=== PATIENT | female | born 1995 | race Caucasian/White ===

== ENCOUNTER → 2019-05-25 | Outpatient (REF) | payer OTHER, MEDICAID | LOC: M LAB REF 13:21 | PROVIDERS: ATTEND Advanced Practice Midwife | DX: Z34.81 Encounter for supervision of other normal pregnancy, first trimester (principal) ==

== ENCOUNTER → 2019-09-09 | Outpatient (CLI) | payer OTHER ==
--- NOTE | 2019-09-09 10:49 | REP ---
Clinical: Anatomical evaluation. Comparison: None . Findings: Examination demonstrates a single live intrauterine in cephalic presentation. motion is identified by technologist. Placenta is noted anterior and grade I without evidence for placenta previa or abruption. Amniotic fluid volume is normal. Cervix measures the 5.1 cm in length and appears closed. No evidence for nuchal cord. Gestational age by LMP 29 weeks 5 days with MARCIN 11/20/2019 . Gestational age by current measurements 29 weeks 6 days with MARCIN 11/19/2019 . FHR equals 144 beats per minute. Estimated weight 1457 grams ( 44th percentile). Amniotic fluid index: 11.0 cm (9.1 - 23.3) Umbilical cord SD ratio: 3.32 Anatomical assessment demonstrates normal structures including cranium, choroid plexus, cavum, cerebellum/posterior fossa, lungs, diaphragm, stomach, cord insertion/three-vessel cord, kidneys/bladder, spine, and extremities. Suboptimal evaluation of the facial features and heart/ventricular outflow tracts due to lie. However, no obvious abnormalities appreciated. Impression: 1. Single live intrauterine in cephalic presentation demonstrating appropriate interval growth. 2. Although no gross abnormalities are identified, limited evaluation of the facial features and heart/ventricular outflow tracts noted. Electronically Signed by Bob Delacruz MD 09/09/2019 10:40 A
== END ==
LOC: M RAD 09:28
PROVIDERS: ATTEND Obstetrics & Gynecology
DX: Z34.80 Encounter for supervision of other normal pregnancy, unspecified trimester (principal); Z3A.29 29 weeks gestation of pregnancy

== ENCOUNTER → 2019-10-20 | Outpatient (CLI) | payer OTHER | LOC: M PLALAB 11:30 | PROVIDERS: ATTEND Advanced Practice Midwife | DX: Z34.83 Encounter for supervision of other normal pregnancy, third trimester (principal) ==

== ENCOUNTER 2019-10-25 13:20 | Outpatient (CLI) | payer OTHER ==
[~2019-10-25] VITALS: Ht 160 cm; Wt 109.1 kg
[2019-10-25] MEDS ORDERED: LR 1,000 ML IV ONE (13:45)
[2019-10-25 13:47] VITALS: BP 133/85
[2019-10-25] MEDS ORDERED: PRENTAB9 PO (14:07)
[2019-10-25] MEDS: ONDANSETRON 4MG/2ML VIAL (J2405) IV SCH ×2 (14:33→18:13)
[2019-10-25] MEDS ORDERED: LR 1,000 ML IV SCH (14:45)
[2019-10-25 15:16] VITALS: BP 138/84
[2019-10-25 15:17] LABS: INFLUENZA A AMPLIFICATION NEGATIVE (NEGATIVE); INFLUENZA B AMPLIFICATION NEGATIVE (NEGATIVE)
[2019-10-25 16:44] VITALS: BP 125/72
--- NOTE | 2019-10-25 17:55 | IPNPDOC ---
Text Note Date of Service The patient was seen on 10/25/19. NOTE Subjective: Patient is a 24-year-old at 36.2 wk gestation by LMP and consistent with first trimester ultrasound. MARCIN 11/20/2019. Care was established in first trimester. Prepregnancy weight was 200# and last weight was 240#. has been complicated by history of gestational hypertension. She is presents to labor and delivery c/o nausea and vomiting that started at 0300 this morning. She reports she is unable to keep any fluid down. Patient denies fevers. She reports positive movement, denies leakage of fluid, vaginal bleeding or regular uterine contractions. Objective: Alert and oriented x3. No apparent distress. Regular rate and cardiac rhythm. No difficulty breathing or retractions. Abdomen soft, gravid. No emesis since arrival. heart rate 140 with moderate variability, accelerations present, decelerations absent. Occasional mild contractions. Flu swab collected negative. Tolerated PO intake after medication. -Medical History: Gestational hypertension (previous ) -Surgical History: Knee surgery -Family History: Diabetes, HTN, thyroid dysfunction -Social History: Denies alcohol abuse, nicotine or drug use -Medications: vitamin 1 tab PO daily Assessment: SIUP @ 36.2wk gestation, category 1 tracing; nausea and vomiting in without fever, flu negative Plan: -1000ml LR IV fluid bolus followed by LR at 125ml/hr. -4mg IV zofran on arrival and 4mg IV zofran prior to discharge. -Oral fluids and crackers tolerated. -Continuous heart rate monitoring. -Discharge home with labor precautions. -Patient to call with leakage of fluid, vaginal bleeding, contractions increasing in frequency and intensity, decreased movement or abdominal trauma. -Encouraged adequate PO fluid intake. -Keep next appointment on Friday. VS,Fishbone, I+O VS, Fishbone, I+O Vital Signs Date Time Temp Pulse Resp B/P (MAP) Pulse Ox O2 Delivery O2 Flow Rate FiO2 10/25/19 13:47 99.5 130 18 133/85 (101) ZACKERY NULL CNM Oct 25, 2019 17:55
== END 2019-10-25 18:30 | disposition home or self-care (01) ==
LOC: M LDO 13:20
PROVIDERS: ATTEND Advanced Practice Midwife
DX: O21.8 Other vomiting complicating pregnancy (principal); Z3A.36 36 weeks gestation of pregnancy
CPT/HCPCS: 59025; 87631; 96361; 96374; J2405

== ENCOUNTER 2019-11-09 23:52 | Inpatient (IN) | payer OTHER, MEDICAID ==
[~2019-11-09] VITALS: Ht 160 cm; Wt 111.8 kg
[~2019-11-09 23:52] MED LIST: PRENTAB9 PO
[2019-11-10] VITALS (8 sets, daily range): BP systolic 121–145; BP diastolic 58–82
[2019-11-10] MEDS ORDERED: LACTATED RINGER'S 1000 ML IV STA (01:14)
[2019-11-10] MEDS ORDERED: LR 1,000 ML IV SCH (01:14)
[2019-11-10] MEDS ORDERED: OXYTOCIN DRIP 30 UNITS in IV 1 EA IV SCH ×2 (01:30→05:29)
[2019-11-10 02:14] LABS: HEMATOCRIT 34.5 % (36.0-47.0); MEAN CORPUSCULAR HEMOGLOBIN 26.6 pg (27.0-33.0); MEAN CORPUSCULAR HGB CONC 31.9 g/dl (32.0-36.5); MEAN CORPUSCULAR VOLUME 83.3 fl (80.0-96.0); PLATELET COUNT, AUTOMATED 224 10^3/uL (150-450); RED BLOOD COUNT 4.14 10^6/uL (4.00-5.40); WHITE BLOOD COUNT 9.7 10^3/uL (4.0-10.0)
[2019-11-10] MEDS ORDERED: ACETAMINOPHEN TAB 650MG DOSE (2X325MG) PO PRN (05:30)
[2019-11-10] MEDS ORDERED: DIBUCAINE 1% OINTMENT 30GM TOP PRN (05:30)
[2019-11-10] MEDS ORDERED: RHOGAM 300 MCG (1500 IU) INJ (J2790) IM SCH (05:30)
[2019-11-10] MEDS ORDERED: ONDANSETRON 4MG/2ML VIAL (J2405) IV PRN (05:30)
[2019-11-10] MEDS ORDERED: ACETAMINOPHEN 500 MG TAB PO PRN (05:30)
[2019-11-10] MEDS ORDERED: MEASLES,MUMPS,RUBELLA VACCINE INJ (MMR-II) (90707) SC SCH (05:30)
[2019-11-10] MEDS ORDERED: PROMETHAZINE 25 MG TAB PO PRN (05:30)
[2019-11-10] MEDS ORDERED: IBUPROFEN 600 MG TAB PO PRN (05:30)
[2019-11-10] MEDS ORDERED: DOCUSATE SODIUM 100 MG CAP PO PRN (05:30)
[2019-11-10] MEDS ORDERED: IBUPROFEN 800 MG TAB PO PRN (05:30)
[2019-11-10] MEDS: PRENATAL VITAMINS CHEWABLE TABLET PO SCH (07:38)
[2019-11-11 06:00] VITALS: BP 125/76
[2019-11-11] MEDS: PRENATAL VITAMINS CHEWABLE TABLET PO SCH (09:00)
== END 2019-11-11 11:00 | disposition home or self-care (01) | DRG 560 ==
LOC: M LDO 23:52 → M LDI 11-10 01:26 → M OBS 11-10 15:04
PROVIDERS: ADMIT Obstetrics & Gynecology; ATTEND Obstetrics & Gynecology
PROC: 10E0XZZ Delivery of Products of Conception, External Approach (ICD-10-PCS; principal; 2019-11-10)
PROC: 0HQ9XZZ Repair Perineum Skin, External Approach (ICD-10-PCS; 2019-11-10)
DX: O42.02 Full-term premature rupture of membranes, onset of labor within 24 hours of rupture (principal); O69.81X0 Labor and delivery complicated by cord around neck, without compression, not applicable or unspecified; Z3A.38 38 weeks gestation of pregnancy; O70.0 First degree perineal laceration during delivery; Z37.0 Single live birth

== ENCOUNTER → 2020-11-30 | Outpatient (CLI) | payer OTHER ==
--- NOTE | 2020-12-01 09:03 | REP ---
INDICATION: ANATOMY COMPARISON: None. TECHNIQUE: Transabdominal obstetrical ultrasound with color Doppler evaluation. FINDINGS: Examination demonstrates a single live intrauterine in breech presentation. motion is identified by technologist. Placenta is noted posterior and grade 0 without evidence for placenta previa or abruption. Amniotic fluid volume is normal. Cervix measures 3.1 cm in length and appears closed. Gestational age by LMP 18 weeks 1 day with MARCIN 05/02/2021. Gestational age by current measurements 18 weeks 0 days with MARCIN 05/03/2021. FHR equals 163 beats per minute. BPD: 4.0 cm at 18 weeks 1 day HC: 14.8 cm at 18 weeks 0 days AC: 12.1 cm at 17 weeks 5 days FL: 2.6 cm at 17 weeks 6 days HL: 2.6 cm at 18 weeks 2 days HC/AC: 1.23 Estimated weight 212 grams (28thpercentile). Anatomical assessment demonstrates normal structures including cranium, choroid plexus, cavum, cerebellum/posterior fossa, facial features, cardiac ventricular outflow tracts, lungs, diaphragm, stomach, cord insertion/three-vessel cord, kidneys/bladder, spine, and extremities. IMPRESSION: Single live intrauterine in breech presentation demonstrating appropriate estimated weight. Echogenic focus within the cardiac left ventricle likely represents prominent chordae tendineae. Remainder of the anatomical assessment is complete and normal. <Electronically signed by Bob Delacruz > 12/01/20 0900
== END ==
LOC: M WHC 14:33
PROVIDERS: ATTEND Obstetrics & Gynecology
DX: O10.912 Unspecified pre-existing hypertension complicating pregnancy, second trimester (principal); Z3A.18 18 weeks gestation of pregnancy

== ENCOUNTER → 2020-12-29 | Outpatient (REF) | payer OTHER ==
[2020-12-29 15:28] LABS: HEMATOCRIT 37.7 % (36.0-47.0); HEMOGLOBIN 12.4 g/dl (12.0-15.5); MEAN CORPUSCULAR HEMOGLOBIN 29.7 pg (27.0-33.0); MEAN CORPUSCULAR HGB CONC 32.9 g/dl (32.0-36.5); MEAN CORPUSCULAR VOLUME 90.4 fl (80.0-96.0); PLATELET COUNT, AUTOMATED 214 10^3/uL (150-450); RED BLOOD COUNT 4.17 10^6/uL (4.00-5.40); WHITE BLOOD COUNT 8.9 10^3/uL (4.0-10.0)
[2020-12-29 15:42] LABS: CREATININE,RANDOM URINE 37.4 MG/DL; TOTAL PROTEIN,RANDOM URINE 9.8 MG/DL (0.0-12.0)
[2020-12-29 15:43] LABS: ALT/SGPT 8 U/L (12-78); BILIRUBIN,TOTAL 0.2 MG/DL (0.2-1.0); GLOMERULAR FILTRATION RATE > 60.0 (>60); LDH LACTATE DEHYDROGENASE 151 U/L (84-246); URIC ACID 3.6 MG/DL (2.6-6.0)
== END ==
LOC: M PLALAB 12:14
PROVIDERS: ATTEND Advanced Practice Midwife
DX: O10.919 Unspecified pre-existing hypertension complicating pregnancy, unspecified trimester (principal); Z3A.22 22 weeks gestation of pregnancy

== ENCOUNTER → 2021-01-26 | Outpatient (CLI) | payer OTHER ==
--- NOTE | 2021-01-28 08:10 | REP ---
INDICATION: GROWTH/HYPERTENSION COMPARISON: 11/30/2020 TECHNIQUE: Transabdominal obstetrical ultrasound with color Doppler evaluation. FINDINGS: Examination demonstrates a single live intrauterine in breech presentation. motion is identified by technologist. Placenta is noted posterior and grade 1 without evidence for placenta previa or abruption. Amniotic fluid volume is normal. Cervix measures 3.0 cm in length and appears closed.. Gestational age by LMP 26 weeks 2 days with MARCIN 05/02/2021. Gestational age by current measurements 26 weeks 4 days with MARCIN 04/30/2021. FHR equals 149 beats per minute. BPD: 6.6 cm at 26 weeks 4 days HC: 24.3 cm at 26 weeks 2 days AC: 21.7 cm at 26 weeks 1 day FL: 4.8 cm at 26 weeks 1 day HL: 4.7 cm at 27 weeks 4 days HC/AC: 1.12 Estimated weight 902 grams (34thpercentile). Limited anatomical assessment is grossly unremarkable. Previously identified echogenic focus within the left cardiac ventricle is not visualized on current exam. IMPRESSION: Single live intrauterine in breech presentation demonstrating appropriate estimated weight and growth. <Electronically signed by Bob Delacruz > 01/28/21 0832
== END ==
LOC: M WHC 11:04
PROVIDERS: ATTEND Advanced Practice Midwife
DX: O10.919 Unspecified pre-existing hypertension complicating pregnancy, unspecified trimester (principal); Z3A.26 26 weeks gestation of pregnancy

== ENCOUNTER → 2021-01-26 | Outpatient (REF) | payer OTHER ==
[2021-01-26 15:48] LABS: HEMATOCRIT 39.6 % (36.0-47.0); HEMOGLOBIN 12.3 g/dl (12.0-15.5); MEAN CORPUSCULAR HEMOGLOBIN 28.2 pg (27.0-33.0); MEAN CORPUSCULAR HGB CONC 31.1 g/dl (32.0-36.5); MEAN CORPUSCULAR VOLUME 90.8 fl (80.0-96.0); PLATELET COUNT, AUTOMATED 190 10^3/uL (150-450); RED BLOOD COUNT 4.36 10^6/uL (4.00-5.40); WHITE BLOOD COUNT 10.1 10^3/uL (4.0-10.0)
== END ==
LOC: M PLALAB 12:18
PROVIDERS: ATTEND Advanced Practice Midwife
DX: Z34.92 Encounter for supervision of normal pregnancy, unspecified, second trimester (principal); Z3A.22 22 weeks gestation of pregnancy

== ENCOUNTER → 2021-02-23 | Outpatient (CLI) | payer OTHER | LOC: M WHC 12:15 | PROVIDERS: ATTEND Obstetrics & Gynecology | DX: O10.919 Unspecified pre-existing hypertension complicating pregnancy, unspecified trimester (principal) ==

== ENCOUNTER → 2021-03-12 | Outpatient (CLI) | payer OTHER ==
--- NOTE | 2021-03-12 14:10 | REP ---
INDICATION: GROWTH/HYPERTENSION COMPARISON: 01/26/2021 TECHNIQUE: Transabdominal obstetrical ultrasound with color Doppler evaluation. FINDINGS: Examination demonstrates a single live intrauterine in cephalic presentation. motion is identified by technologist. Placenta is noted posterior and grade 2 without evidence for placenta previa or abruption. Amniotic fluid volume is normal. Cervix appears closed. Selected gestational age: 32 weeks 5 days with MARCIN 05/02/2021. Gestational age by current measurements 32 weeks 5 days with MARCIN 05/02/2021. FHR equals 146 beats per minute. Estimated weight 1936 grams (27thpercentile). INGA: 17.3 cm (8.4-24.4) Umbilical artery SD ratio: 2.56 (1.80-3.80) IMPRESSION: Single live advanced gestation in cephalic presentation. Estimated weight and amniotic fluid volume are normal. <Electronically signed by Bob Delacruz > 03/12/21 [id number]
== END ==
LOC: M WHC 13:08
PROVIDERS: ATTEND Obstetrics & Gynecology
DX: O10.919 Unspecified pre-existing hypertension complicating pregnancy, unspecified trimester (principal)

== ENCOUNTER → 2021-03-30 | Outpatient (REF) | payer OTHER | LOC: M SFHCWAGY 13:10 | PROVIDERS: ATTEND Advanced Practice Midwife | DX: O10.013 Pre-existing essential hypertension complicating pregnancy, third trimester (principal) ==

== ENCOUNTER → 2021-04-09 | Outpatient (CLI) | payer OTHER ==
--- NOTE | 2021-04-09 14:34 | REP ---
INDICATION: CHRONIC HYPERTENSION,GROWTH. COMPARISON: None. TECHNIQUE: Transabdominal scanning FINDINGS: Multiple ultrasonographic images of the gravid uterus show a single living intrauterine gestation in the cephalic presentation. The placenta is posterior and not low lying. Doppler interrogation of the heart shows a heart rate of 130 beats per minute. The subjective amniotic fluid volume is within normal limits. The calculated amniotic fluid index is 14.7 within expected range 7.6 to 24.5. Secondary to the low position of the head an accurate cervical length measurement could not be obtained. BPD: 8.9 cm 36 weeks 0 days HC: 32.0 cm 36 weeks 1 day AC: 32.3 cm 36 weeks 1 day FL: 7.2 cm 36 weeks 5 days The estimated weight is 2004 g which is at the 43rd percentile for a 36 week 5 day gestational age. IMPRESSION: Single living intrauterine gestation as described above with an estimated gestational age of 36 weeks 2 days via composite criteria and an estimated date of delivery of 05/05/2021 by today's exam. <Electronically signed by Amrit Willett > 04/09/21 [id number]
== END ==
LOC: M WHC 12:31
PROVIDERS: ATTEND Obstetrics & Gynecology
DX: O10.919 Unspecified pre-existing hypertension complicating pregnancy, unspecified trimester (principal)

== ENCOUNTER 2021-04-20 17:37 | Inpatient (IN) | payer OTHER ==
[~2021-04-20] VITALS: Ht 162.6 cm; Wt 121.7 kg
[2021-04-20] VITALS (10 sets, daily range): BP systolic 119–180; BP diastolic 62–91
[2021-04-20] MEDS ORDERED: LACTATED RINGER'S 1000 ML IV STA (18:04)
[2021-04-20] MEDS ORDERED: OXYTOCIN DRIP 30 UNITS in IV 1 EA IV PRN (18:05)
[2021-04-20] MEDS ORDERED: LIDOCAINE 1% MDV 20ML VIAL INFIL PRN (18:05)
[2021-04-20] MEDS ORDERED: METHYLERGONOVINE MALEATE 0.2 MG/ML VIAL (J2210) IM PRN (18:05)
[2021-04-20] MEDS ORDERED: ASPI81CH33 PO (18:07)
[2021-04-20] MEDS ORDERED: LABE100T5 PO (18:07)
[2021-04-20] MEDS ORDERED: HOME MED LIST COMPLETE! XX SCH (18:10)
[2021-04-20 18:52] LABS: HEMATOCRIT 36.2 % (36.0-47.0); HEMOGLOBIN 11.6 g/dl (12.0-15.5); MEAN CORPUSCULAR HEMOGLOBIN 27.6 pg (27.0-33.0); MEAN CORPUSCULAR VOLUME 86.2 fl (80.0-96.0); PLATELET COUNT, AUTOMATED 196 10^3/uL (150-450); WHITE BLOOD COUNT 8.8 10^3/uL (4.0-10.0)
--- NOTE | 2021-04-20 18:57 | HPEPDOC ---
Obstetrical History & Physical General Date of Admission Apr 20, 2021 at 17:37 History of Present Illness Chief Complaint: Induction of labor (chronic hyperension) Age: 25 : 3 Term: 2 Pre-term: 0 Abortions: 0 Livin Care Care: Good Care Dating Final EDC by: 1st trimester (US) EGA at Admission: 38 (+2) Antepartum Course Pre- weight (lbs.): 242 Admission Weight (lbs.): 266 Past Medical History Past Obstetrical History #1: Past Obstetrical History: Primgravida (2017) Type of Delivery: Spontaneous Vaginal Del. Sex of Infant: Male (7#14) Complications: Yes (GHTN) Past Obstetrical History #2: Past Obstetrical History: Multigravida (2019) Type of Delivery: Spontaneous Vaginal Del. Sex of : Female (7#2) Complications: Yes (CHTN) [employer] History: No pertinent history Past Medical History Medical History obesity hypertension Surgical History: Other (knee) Family History Significant Family History: Diabetes, Hypertension, Other (thyroid dysfunction) Social History Marital Status: Single Psychosocial History: No pertinent psych hx * Smoker: non-smoker Alcohol: Denies Drugs: denies Allergies Coded Allergies: No Known Allergies (Unverified , 10/25/19) Medications Scheduled Aspirin (Aspirin) 81 Mg Tab.chew, MG PO DAILY for pain Labetalol HCl (Labetalol HCl) 100 Mg Tablet, 100 MG PO BID No.137/Iron/Folic Acd ( Vitamin Tablet) 1 Each Tablet, 1 TAB PO DAILY Physical Examination Physical Examination GENERAL: Alert and oriented times three. BREAST: . ABDOMEN: Gravid and non-tender to touch. FETUS: Is vertex (VTX) by sterile vaginal examination (SVE), fetus is vertex (VTX) by Zia. EFW 7.5-8# HEART RATE: Regular rate and rhythm. LUNGS: Clear to auscultation (CTA). EXTREMITIES: No edema. No clonus. Deep tendon reflexes (DTRs) + 2. Laboratory Data [facility] Laboratory Tests 2 04/20/21 18:10: Serology Scanned Report Hepatitis B Testing Pertinent Laboratoy Data Blood Type: A+ RBC Antibody Screen: Negative HIV: Negative Hepatitis B: Negative Hepatitis C: Negative Rapid Plasma Reagin: Nonreactive Rubella: Immune Chlamydia/Gonorrhea: Negative Group B Streptococcus: Positive Glucose Tolerance Test: 100 (early 1hr 91) Anatomy Ultrasound Ultrasound Date: Nov 30, 2020 Placenta Location: Posterior Normal Anatomy: Yes Placenta Previa: No Estimated Weight (grams): 212 (28%) Other Ultrasounds 09/28/2020 dating 9w1d 01/26/2021 Breech, EGA 26w4, EFW 902gm 34% 03/12/2021 cephalic, EGA 32w5d EFW 1936gm 27% INGA 17.3, S/D 2.56 04/09/2021 Cephalic, EGA 36w5d, EFW 2004gm 43%, INGA 14.7 Steroid Therapy Steroid Therapy: No Vaginal Examination Dilation: 1cm Effacement: 50% Station: -2 Cervical Consistency: Medium Cervical Position: Posterior Presentation: Cephalic presentation Assessment Heart Rate (FHR): 135 Variability: Moderate Accelerations: Positive Decelerations: None Tocometer Contractions: Yes Frequency: irregular Duration: less than 60 seconds Strength: palpated as mild Assessment/Plan Assessment Deanna is a 25-year-old (G)3 para (P)2-0-0-2 at 38+2 weeks by 9-week ultrasound. Presents to Labor and Delivery (L&D) induction of labor due to ch ronic hypertension. Currently taking labetalol 100mg BID and ASA 81mg daily. Reports good movement. Denies LOF, bleeding or regular UC. . Plan Admit and orient. 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 Group B Streptococcus (GBS) positive. Labs and intravenous (IV) per unit protocol. Counseled on misoprostol, Pitocin and induction of labor (IOL). Lactated Ringers (LR): Bolus 500 mL, then saline lock. Plans to labor ad albert Anticipate normal spontaneous delivery () C-S as appropriate. Odalis Galaviz CNM Apr 20, 2021 18:31
[2021-04-20] MEDS ORDERED: miSOPROStol 50MCG 1/2 TABLET PO SCH (19:00)
[2021-04-20 19:21] LABS: ALT/SGPT 10 U/L (12-78); BILIRUBIN,TOTAL 0.2 MG/DL (0.2-1.0); CREATININE FOR GFR 0.54 MG/DL (0.55-1.30); GLOMERULAR FILTRATION RATE > 60.0 (>60); LDH LACTATE DEHYDROGENASE 181 U/L (84-246); URIC ACID 4.3 MG/DL (2.6-6.0)
[2021-04-20 19:32] LABS: TOTAL PROTEIN,RANDOM URINE 7.4 MG/DL (0.0-12.0)
[2021-04-20] MEDS: LABETALOL 100MG TAB PO SCH (21:12)
[2021-04-21] VITALS (24 sets, daily range): BP systolic 116–157; BP diastolic 60–83
[2021-04-21] MEDS ORDERED: BUTORPHANOL 2 MG/ML INJ (J0595) IV ONE ×2 (00:15→12:40)
[2021-04-21] MEDS ORDERED: OXYTOCIN DRIP 30 UNITS in IV 1 EA IV SCH ×2 (00:15→15:25)
[2021-04-21] MEDS ORDERED: PROMETHAZINE INJ 25 MG/ML VIAL (J2550) IV ONE (00:15)
--- NOTE | 2021-04-21 00:16 | IPNPDOC ---
Text Note Date of Service The patient was seen on 04/21/21. NOTE Progress Continues to be comfortable Blood pressures are stable UC 2-4 minutes x 45 seconds FH 135, Cat I SVE 2/60/-2, more mid line Start low dose pitocin VS,Fishbone, I+O VS, Fishbone, I+O Laboratory Tests 04/20/21 18:43 Vital Signs Date Time Temp Pulse Resp B/P (MAP) Pulse Ox O2 Delivery O2 Flow Rate FiO2 04/20/21 21:25 89 119/64 (82) Odalis Galaviz CNM Apr 21, 2021 00:16
[2021-04-21] MEDS: LR 1,000 ML IV SCH ×2 (00:24→09:07)
[2021-04-21] MEDS ORDERED: PENICILLIN G POTASSIUM IV 5 MU in D5W MINI-BAG PLUS 100 ML IV ONE (01:00)
[2021-04-21] MEDS: PENICILLIN G POTASSIUM IV 2.5 MU in IV 1 EA IV SCH ×3 (05:52→13:00)
[2021-04-21] MEDS: LABETALOL 100MG TAB PO SCH (09:07)
[2021-04-21] MEDS ORDERED: PROMETHAZINE INJ 25 MG/ML VIAL (J2550) IM ONE (12:40)
[2021-04-21] MEDS ORDERED: FENTANYL 2MCG/ML ROPIVACAINE 0.2% IN 0.9% NACL 100ML IVBAG As Ordered ONE (12:45)
[2021-04-21] MEDS ORDERED: EPIDURAL/PCA KEYS XX PRN (14:00)
[2021-04-21] MEDS ORDERED: LACTATED RINGER'S 1000 ML IV PRN (14:00)
[2021-04-21] MEDS ORDERED: EPIDURAL COMMENT XX SCH (14:00)
[2021-04-21] MEDS ORDERED: FENTANYL/ROPIVACAINE/NACL BAG 100 ML EPIDURAL SCH (14:00)
[2021-04-21] MEDS ORDERED: diphenhydrAMINE 50MG/ML VIAL (J1200) IV PRN (14:00)
[2021-04-21] MEDS ORDERED: NALOXONE INJ 0.4MG/1ML VIAL (J2310 PER 1MG) IV PRN (14:00)
[2021-04-21] MEDS ORDERED: ONDANSETRON 4MG/2ML VIAL IV PRN (14:00)
[2021-04-21] MEDS ORDERED: ePHEDrine SULFATE 25 MG/5 ML(5MG/ML) SYRINGE IV PRN (14:00)
[2021-04-21] MEDS ORDERED: REFRIGERATOR IV KEYS XX PRN (14:00)
[2021-04-21] MEDS ORDERED: ACETAMINOPHEN TAB 650MG DOSE (2X325MG) PO PRN (15:25)
[2021-04-21] MEDS ORDERED: DOCUSATE SODIUM 100MG CAPSULE PO PRN (15:25)
[2021-04-21] MEDS ORDERED: METHYLERGONOVINE MALEATE 0.2 MG TAB PO PRN (15:25)
[2021-04-21] MEDS ORDERED: ACETAMINOPHEN 500 MG TAB PO PRN (15:25)
[2021-04-21] MEDS ORDERED: MEASLES,MUMPS,RUBELLA VACCINE INJ (MMR-II) (90707) SC SCH (15:25)
[2021-04-21] MEDS ORDERED: IBUPROFEN 600MG TAB PO PRN (15:25)
[2021-04-21] MEDS ORDERED: IBUPROFEN 800 MG TAB PO PRN (15:25)
[2021-04-21] MEDS ORDERED: RHOGAM 300 MCG (1500 IU) INJ (J2790) IM SCH (15:25)
--- NOTE | 2021-04-21 15:46 | DN ---
DELIVERY NOTE DATE OF DELIVERY: 04/21/2021 Deanna is a 25-year-old female 3, para 2-0-0-2 who was admitted at 38 weeks gestation for induction. There is chronic hypertension. DESCRIPTION OF DELIVERY: After Pitocin and artificial rupture of membranes, post an epidural, she had precipitous dilatation followed by precipitous delivery, called in by RN. Patient delivered precipitously in bed post-epidural, the live male , Apgars 8-9, weight 6 lbs, 11 oz. Placenta delivered spontaneously intact, three-vessel cord. The perineum, vagina and cervix inspected. No laceration noted. Estimated blood loss: 250 mL. Both mother and baby are in stable condition. [facility]
[2021-04-22 05:54] VITALS: BP 142/82
[2021-04-22] MEDS: PRENATAL VITAMINS CHEWABLE TABLET PO SCH (08:38)
[2021-04-22 17:59] VITALS: BP 148/73
[2021-04-23 06:03] VITALS: BP 145/80
[2021-04-23] MEDS: PRENATAL VITAMINS CHEWABLE TABLET PO SCH (08:38)
== END 2021-04-23 11:45 | disposition home or self-care (01) | DRG 540 ==
LOC: M LDI 17:37 → M OBS 04-21 16:32
PROVIDERS: ADMIT Advanced Practice Midwife; ATTEND Advanced Practice Midwife
PROC: 3E033VJ Introduction of Other Hormone into Peripheral Vein, Percutaneous Approach (ICD-10-PCS; 2021-04-20)
PROC: 3E0DXGC Introduction of Other Therapeutic Substance into Mouth and Pharynx, External Approach (ICD-10-PCS; 2021-04-20)
PROC: 10D00Z1 Extraction of Products of Conception, Low, Open Approach (ICD-10-PCS; principal; 2021-04-21)
DX: O10.92 Unspecified pre-existing hypertension complicating childbirth (principal); O62.3 Precipitate labor; Z37.0 Single live birth; Z3A.38 38 weeks gestation of pregnancy

== ENCOUNTER → 2021-10-09 | Outpatient (REF) | payer OTHER ==
[~2021-10-09] MED LIST changes: +ASPI81CH33 PO; +LABE100T5 PO
[2021-10-09 15:14] LABS: GC DNA AMPLIFICATION NEGATIVE (NEGATIVE)
== END ==
LOC: M SFHCWAGY 13:01
PROVIDERS: ATTEND Obstetrics & Gynecology
DX: Z12.4 Encounter for screening for malignant neoplasm of cervix (principal); Z11.3 Encounter for screening for infections with a predominantly sexual mode of transmission

== ENCOUNTER → 2022-11-14 | Outpatient (CLI) | payer OTHER ==
[~2022-11-14] MED LIST changes: -LABE100T5 PO; +LABE100T71 PO
[2022-11-14 16:08] LABS: HEMATOCRIT 38.9 % (36.0-47.0); HEMOGLOBIN 12.4 g/dl (12.0-15.5); MEAN CORPUSCULAR HEMOGLOBIN 28.1 pg (27.0-33.0); MEAN CORPUSCULAR HGB CONC 31.9 g/dl (32.0-36.5); PLATELET COUNT, AUTOMATED 230 10^3/uL (150-450); RED BLOOD COUNT 4.42 10^6/uL (4.00-5.40); WHITE BLOOD COUNT 7.4 10^3/uL (4.0-10.0)
[2022-11-14 17:05] LABS: HIV 1&2 SCREEN CENTAUR NEGATIVE (NEGATIVE)
[2022-11-14 17:37] LABS: GC DNA AMPLIFICATION NEGATIVE (NEGATIVE)
== END ==
LOC: M PLALAB 13:06
PROVIDERS: ATTEND Specialist
DX: Z34.81 Encounter for supervision of other normal pregnancy, first trimester (principal)

== ENCOUNTER → 2023-01-14 | Outpatient (CLI) | payer OTHER | LOC: M WHC 14:09 | PROVIDERS: ATTEND Specialist | DX: Z34.82 Encounter for supervision of other normal pregnancy, second trimester (principal); Z3A.21 21 weeks gestation of pregnancy ==

== ENCOUNTER → 2023-02-27 | Outpatient (CLI) | payer OTHER | LOC: M WHC 15:01 | PROVIDERS: ATTEND Obstetrics & Gynecology | DX: Z34.92 Encounter for supervision of normal pregnancy, unspecified, second trimester (principal) ==

== ENCOUNTER → 2023-03-06 | Outpatient (CLI) | payer OTHER ==
[2023-03-06 16:22] LABS: HEMATOCRIT 33.7 % (36.0-47.0); HEMOGLOBIN 10.9 g/dl (12.0-15.5); MEAN CORPUSCULAR HEMOGLOBIN 28.3 pg (27.0-33.0); MEAN CORPUSCULAR HGB CONC 32.3 g/dl (32.0-36.5); MEAN CORPUSCULAR VOLUME 87.5 fl (80.0-96.0); PLATELET COUNT, AUTOMATED 210 10^3/uL (150-450); RED BLOOD COUNT 3.85 10^6/uL (4.00-5.40); WHITE BLOOD COUNT 9.1 10^3/uL (4.0-10.0)
[2023-03-06 16:43] LABS: URIC ACID 3.5 MG/DL (3.1-7.8)
[2023-03-06 16:46] LABS: ALT/SGPT < 9 U/L (7.0-40); AST/SGOT < 8 U/L (<34); BILIRUBIN,TOTAL 0.2 MG/DL (0.3-1.2); CREATININE FOR GFR 0.43 MG/DL (0.55-1.30); GLOMERULAR FILTRATION RATE > 60.0 (>60); GLUCOSE CHALLENGE TEST 1 HOUR 146 MG/DL (LESS THAN 140); LDH LACTATE DEHYDROGENASE 147 U/L (120-246)
[2023-03-06 17:00] LABS: CREATININE,RANDOM URINE 29.8 MG/DL; TOTAL PROTEIN,RANDOM URINE < 6.0 MG/DL (0.0-14.0)
== END ==
LOC: M PLALAB 13:24
PROVIDERS: ATTEND Obstetrics & Gynecology
DX: O10.919 Unspecified pre-existing hypertension complicating pregnancy, unspecified trimester (principal)

== ENCOUNTER → 2023-04-17 | Outpatient (CLI) | payer OTHER | LOC: M WHC 13:25 | PROVIDERS: ATTEND Obstetrics & Gynecology | DX: O10.919 Unspecified pre-existing hypertension complicating pregnancy, unspecified trimester (principal); Z3A.35 35 weeks gestation of pregnancy ==

== ENCOUNTER → 2023-04-18 | Outpatient (REF) | payer OTHER | LOC: M PLALAB 13:00 | PROVIDERS: ATTEND Obstetrics & Gynecology | DX: Z34.93 Encounter for supervision of normal pregnancy, unspecified, third trimester (principal) ==

== ENCOUNTER → 2023-10-14 | Outpatient (REF) | payer OTHER, MEDICAID ==
[~2023-10-14] MED LIST changes: +ACET-683 PO; +IBUP-1022 PO; +NIFE1TAB52 PO
== END ==
LOC: M SFHCWAGY 17:51
PROVIDERS: ATTEND Advanced Practice Midwife
DX: Z12.4 Encounter for screening for malignant neoplasm of cervix (principal)

== ENCOUNTER 2024-07-03 19:48 | Emergency (ER) | payer MEDICAID, OTHER ==
[~2024-07-03] VITALS: Ht 160 cm; Wt 71.6 kg
[~2024-07-03 19:48] MED LIST changes: +LABE100T40 PO; -LABE100T71 PO
[2024-07-03 19:54] VITALS: TEMP 97.1
[2024-07-03 21:38] LABS: BASO % 0.5 % (0.0-1.0); EOS # 0.2 10^3/uL (0.0-0.5); EOS % 1.9 % (0.0-3.0); HEMATOCRIT 39.8 % (36.0-47.0); HEMOGLOBIN 12.7 g/dl (12.0-15.5); LYMPH # 2.4 10^3/uL (1.5-5.0); LYMPH % 27.7 % (24.0-44.0); MEAN CORPUSCULAR HEMOGLOBIN 27.3 pg (27.0-33.0); MEAN CORPUSCULAR HGB CONC 31.9 g/dl (32.0-36.5); MEAN CORPUSCULAR VOLUME 85.4 fl (80.0-96.0); MONO # 0.6 10^3/uL (0.0-0.8); MONO % 6.5 % (2.0-8.0); NEUTROPHILS # 5.4 10^3/uL (1.5-8.5); PLATELET COUNT, AUTOMATED 240 10^3/uL (150-450); RED BLOOD COUNT 4.66 10^6/uL (4.00-5.40); WHITE BLOOD COUNT 8.5 10^3/uL (4.0-10.0)
[2024-07-04 00:27] LABS: APPEARANCE, URINE CLEAR (CLEAR); BACTERIA, URINE AUTO NEGATIVE (NEGATIVE); BILIRUBIN, URINE AUTO NEGATIVE (NEGATIVE); BLOOD, URINE BLOOD NEGATIVE (NEGATIVE); COLOR, URINE STRAW (YELLOW); GLUCOSE, URINE (UA) AUTO NEGATIVE (NEGATIVE); KETONE, URINE AUTO NEGATIVE (NEGATIVE); LEUKOCYTE ESTERASE, URINE AUTO NEGATIVE (NEGATIVE); NITRITE, URINE AUTO NEGATIVE (NEGATIVE); PROTEIN, URINE AUTO NEGATIVE (NEGATIVE); RBC, URINE AUTO 0 /HPF (0-3); SPECIFIC GRAVITY URINE AUTO 1.005 (1.002-1.035); SQUAMOUS EPITHELIAL CELL UR AU 1 /HPF (0-6); UROBILINOGEN, URINE AUTO 0.2 mg/dL (0.0-2.0); WBC, URINE AUTO 1 /HPF (0-3)
[2024-07-04 01:00] VITALS: BP 140/75; O2SAT 96
== END 2024-07-04 01:13 | disposition home or self-care (01) ==
LOC: M ED 19:48
DX: O44.01 Complete placenta previa NOS or without hemorrhage, first trimester (principal); Z3A.10 10 weeks gestation of pregnancy; Z79.1 Long term (current) use of non-steroidal anti-inflammatories (NSAID); Z79.899 Other long term (current) drug therapy

== ENCOUNTER → 2024-07-28 | Outpatient (CLI) | payer OTHER | LOC: M WHC 14:09 | PROVIDERS: ATTEND Obstetrics & Gynecology | DX: O99.212 Obesity complicating pregnancy, second trimester (principal) ==

== ENCOUNTER → 2024-07-29 | Outpatient (CLI) | payer OTHER ==
[2024-07-29 15:18] LABS: HEMATOCRIT 38.7 % (36.0-47.0); HEMOGLOBIN 12.4 g/dl (12.0-15.5); MEAN CORPUSCULAR HEMOGLOBIN 27.7 pg (27.0-33.0); MEAN CORPUSCULAR VOLUME 86.4 fl (80.0-96.0); PLATELET COUNT, AUTOMATED 207 10^3/uL (150-450); RED BLOOD COUNT 4.48 10^6/uL (4.00-5.40); WHITE BLOOD COUNT 7.6 10^3/uL (4.0-10.0)
[2024-07-29 15:51] LABS: HIV 1&2 SCREEN NEGATIVE (NEGATIVE)
[2024-07-29 15:59] LABS: HEPATITIS C VIRUS ABY INDEX 0.02 INDEX (<0.8)
== END ==
LOC: M PLALAB 12:36
PROVIDERS: ATTEND Specialist
DX: Z34.81 Encounter for supervision of other normal pregnancy, first trimester (principal)

== ENCOUNTER → 2024-08-26 | Outpatient (REF) | payer OTHER ==
[2024-08-26 15:41] LABS: TOTAL PROTEIN,RANDOM URINE 8.3 MG/DL (0.0-14.0)
[2024-08-26 15:46] LABS: CREATININE,RANDOM URINE 81.6 MG/DL
== END ==
LOC: M SFHCWAGY 14:52
PROVIDERS: ATTEND Obstetrics & Gynecology
DX: O09.299 Supervision of pregnancy with other poor reproductive or obstetric history, unspecified trimester (principal); Z3A.00 Weeks of gestation of pregnancy not specified

== ENCOUNTER → 2024-09-03 | Outpatient (CLI) | payer OTHER | LOC: M WHC 08:04 | PROVIDERS: ATTEND Obstetrics & Gynecology | DX: O99.212 Obesity complicating pregnancy, second trimester (principal); Z3A.19 19 weeks gestation of pregnancy; E66.9 Obesity, unspecified ==

== ENCOUNTER → 2024-10-21 | Outpatient (CLI) | payer OTHER ==
[2024-10-21 17:38] LABS: HEMATOCRIT 36.7 % (36.0-47.0); HEMOGLOBIN 11.9 g/dl (12.0-15.5); MEAN CORPUSCULAR HEMOGLOBIN 28.5 pg (27.0-33.0); MEAN CORPUSCULAR HGB CONC 32.4 g/dl (32.0-36.5); PLATELET COUNT, AUTOMATED 225 10^3/uL (150-450); RED BLOOD COUNT 4.17 10^6/uL (4.00-5.40)
[2024-10-21 17:59] LABS: GLUCOSE CHALLENGE TEST 1 HOUR 81 MG/DL (LESS THAN 140)
[2024-10-21 18:33] LABS: HIV 1&2 SCREEN NEGATIVE (NEGATIVE)
[2024-10-21 18:41] LABS: HEPATITIS C VIRUS ABY INDEX 0.18 INDEX (<0.8)
[2024-10-21 19:36] LABS: GC DNA AMPLIFICATION NEGATIVE (NEGATIVE)
== END ==
LOC: M PLALAB 14:14
PROVIDERS: ATTEND Nurse Practitioner Family
DX: Z34.80 Encounter for supervision of other normal pregnancy, unspecified trimester (principal)

== ENCOUNTER → 2024-10-28 | Outpatient (CLI) | payer OTHER | LOC: M WHC 13:11 | PROVIDERS: ATTEND Nurse Practitioner Family | DX: Z34.82 Encounter for supervision of other normal pregnancy, second trimester (principal); Z3A.27 27 weeks gestation of pregnancy ==

== ENCOUNTER → 2024-11-17 | Outpatient (CLI) | payer OTHER ==
[2024-11-17 17:18] LABS: HEMATOCRIT 36.3 % (36.0-47.0); HEMOGLOBIN 11.6 g/dl (12.0-15.5); MEAN CORPUSCULAR HEMOGLOBIN 27.9 pg (27.0-33.0); MEAN CORPUSCULAR VOLUME 87.3 fl (80.0-96.0); PLATELET COUNT, AUTOMATED 210 10^3/uL (150-450); RED BLOOD COUNT 4.16 10^6/uL (4.00-5.40); WHITE BLOOD COUNT 10.2 10^3/uL (4.0-10.0)
[2024-11-17 17:20] LABS: URIC ACID 4.1 MG/DL (3.1-7.8)
[2024-11-17 17:22] LABS: LDH LACTATE DEHYDROGENASE 141 U/L (120-246)
[2024-11-17 17:23] LABS: ALT/SGPT 11 U/L (7.0-40); AST/SGOT < 8 U/L (<34); BILIRUBIN,TOTAL 0.2 MG/DL (0.3-1.2); CREATININE FOR GFR 0.41 MG/DL (0.55-1.30); GLOMERULAR FILTRATION RATE > 60.0 (>60)
[2024-11-17 17:47] LABS: CREATININE,RANDOM URINE 22.9 MG/DL
[2024-11-17 17:48] LABS: TOTAL PROTEIN,RANDOM URINE < 6.0 MG/DL (0.0-14.0)
== END ==
LOC: M PLALAB 14:34
PROVIDERS: ATTEND Nurse Practitioner Family
DX: O10.919 Unspecified pre-existing hypertension complicating pregnancy, unspecified trimester (principal)

== ENCOUNTER → 2024-12-01 | Outpatient (CLI) | payer OTHER | LOC: M WHC 12:15 | PROVIDERS: ATTEND Nurse Practitioner Family | DX: O40.3XX0 Polyhydramnios, third trimester, not applicable or unspecified (principal); Z3A.32 32 weeks gestation of pregnancy ==

== ENCOUNTER → 2024-12-22 | Outpatient (REF) | payer OTHER | LOC: M SFHCWAGY 17:07 | PROVIDERS: ATTEND Obstetrics & Gynecology | DX: Z36.85 Encounter for antenatal screening for Streptococcus B (principal); Z3A.35 35 weeks gestation of pregnancy ==

== ENCOUNTER → 2024-12-28 | Outpatient (CLI) | payer OTHER ==
[2024-12-28 18:09] LABS: HEMATOCRIT 35.3 % (36.0-47.0); HEMOGLOBIN 11.2 g/dl (12.0-15.5); MEAN CORPUSCULAR HGB CONC 31.7 g/dl (32.0-36.5); MEAN CORPUSCULAR VOLUME 85.1 fl (80.0-96.0); PLATELET COUNT, AUTOMATED 229 10^3/uL (150-450); RED BLOOD COUNT 4.15 10^6/uL (4.00-5.40); WHITE BLOOD COUNT 9.4 10^3/uL (4.0-10.0)
[2024-12-28 18:40] LABS: TOTAL PROTEIN,RANDOM URINE 13.3 MG/DL (0.0-14.0)
[2024-12-28 18:42] LABS: URIC ACID 4.8 MG/DL (3.1-7.8)
[2024-12-28 18:44] LABS: LDH LACTATE DEHYDROGENASE 193 U/L (120-246)
[2024-12-28 18:45] LABS: ALT/SGPT < 9 U/L (7.0-40); AST/SGOT 10 U/L (<34); BILIRUBIN,TOTAL 0.2 MG/DL (0.3-1.2); CREATININE FOR GFR 0.42 MG/DL (0.55-1.30); CREATININE,RANDOM URINE 98.8 MG/DL; GLOMERULAR FILTRATION RATE > 90.0 (>60)
== END ==
LOC: M PLALAB 16:31
PROVIDERS: ATTEND Advanced Practice Midwife
DX: O10.919 Unspecified pre-existing hypertension complicating pregnancy, unspecified trimester (principal)

== ENCOUNTER 2025-01-05 07:47 | Inpatient (IN) | payer OTHER ==
[2025-01-05] VITALS (37 sets, daily range): BP systolic 113–179; BP diastolic 56–89
[~2025-01-05] VITALS: Ht 162.6 cm; Wt 124.7 kg
[2025-01-05] MEDS ORDERED: LIDOCAINE 1% MDV 20ML VIAL INFIL PRN (08:45)
[2025-01-05] MEDS ORDERED: OXYTOCIN DRIP 30 UNITS in IV 1 EA IV PRN (08:45)
[2025-01-05] MEDS ORDERED: OXYTOCIN INJ 10UNITS/ML 1ML VIAL IM PRN (08:45)
[2025-01-05] MEDS ORDERED: CARBOPROST TROMETHAMINE 250 MCG/ML AMP IM PRN (08:45)
[2025-01-05 10:14] LABS: TOTAL PROTEIN,RANDOM URINE 8.1 MG/DL (0.0-14.0)
[2025-01-05 10:19] LABS: CREATININE,RANDOM URINE 58.1 MG/DL
[2025-01-05 10:22] LABS: HEMATOCRIT 36.1 % (36.0-47.0); HEMOGLOBIN 11.4 g/dl (12.0-15.5); MEAN CORPUSCULAR HEMOGLOBIN 26.6 pg (27.0-33.0); MEAN CORPUSCULAR HGB CONC 31.6 g/dl (32.0-36.5); MEAN CORPUSCULAR VOLUME 84.3 fl (80.0-96.0); PLATELET COUNT, AUTOMATED 221 10^3/uL (150-450); RED BLOOD COUNT 4.28 10^6/uL (4.00-5.40); WHITE BLOOD COUNT 9.8 10^3/uL (4.0-10.0)
[2025-01-05] MEDS: miSOPROStol 50MCG 1/2 TABLET PO SCH (10:31)
[2025-01-05 10:45] LABS: URIC ACID 5.1 MG/DL (3.1-7.8)
[2025-01-05] MEDS: PENICILLIN G POTASSIUM 5 MU IV 5 MU in DEXTROSE 5% (D5W) MINI-BAG PLU 100 ML IV STA (10:45)
[2025-01-05 10:47] LABS: LDH LACTATE DEHYDROGENASE 186 U/L (120-246)
[2025-01-05 10:48] LABS: ALT/SGPT < 9 U/L (7.0-40); AST/SGOT 11 U/L (<34); BILIRUBIN,TOTAL 0.3 MG/DL (0.3-1.2); GLOMERULAR FILTRATION RATE > 90.0 (>60)
[2025-01-05 11:18] LABS: HIV 1&2 SCREEN NEGATIVE (NEGATIVE)
[2025-01-05 11:25] LABS: HEPATITIS C VIRUS ABY INDEX 0.06 INDEX (<0.8)
[2025-01-05] MEDS ORDERED: PEN G POT 3,000,000 UNIT/50 ML 3,000,000 UNIT in IV 1 EA IV SCH (12:45)
[2025-01-05] MEDS: LR 1,000 ML IV SCH (14:46)
[2025-01-05] MEDS: OXYTOCIN DRIP 30 UNITS in IV 1 EA IV SCH (14:46)
[2025-01-05] MEDS: PEN G POT 3,000,000 UNIT/50 ML 3,000,000 UNIT in IV 1 EA IV SCH (14:46)
[2025-01-05] MEDS ORDERED: EPIDURAL/PCA KEYS XX PRN (16:25)
[2025-01-05] MEDS ORDERED: NALOXONE INJ 0.4MG/1ML VIAL IV PRN (16:25)
[2025-01-05] MEDS ORDERED: ONDANSETRON 4MG 2ML VIAL IV PRN (16:25)
[2025-01-05] MEDS ORDERED: diphenhydrAMINE 50MG/ML VIAL IV PRN (16:25)
[2025-01-05] MEDS ORDERED: ePHEDrine SULFATE 25 MG/5 ML(5MG/ML) SYRINGE IVP PRN (16:25)
[2025-01-05] MEDS ORDERED: LR 500 ML IV PRN (16:25)
[2025-01-05] MEDS: FENTANYL/ROPIVACAINE/NACL BAG 100 ML EPIDURAL SCH (16:50)
[2025-01-05] MEDS: LR 1,000 ML IV ONE (16:51)
[2025-01-05] MEDS ORDERED: TRANEXAMIC ACID 100 MG/ML 10ML VIAL As Ordered ONE (19:18)
[2025-01-05] MEDS ORDERED: ACETAMINOPHEN 325 MG TAB PO PRN (23:25)
[2025-01-05] MEDS ORDERED: IBUPROFEN 600MG TAB PO PRN (23:25)
[2025-01-05] MEDS ORDERED: ACETAMINOPHEN 500 MG TAB PO PRN (23:25)
[2025-01-05] MEDS ORDERED: DIBUCAINE 1% OINTMENT 30GM TOP PRN (23:25)
[2025-01-05] MEDS ORDERED: DOCUSATE SODIUM 100MG CAPSULE PO PRN (23:25)
[2025-01-05] MEDS ORDERED: METHYLERGONOVINE MALEATE 0.2 MG TAB PO PRN (23:25)
[2025-01-05] MEDS ORDERED: RHOGAM 300MCG (1500IU) INJ IM SCH (23:25)
[2025-01-05] MEDS ORDERED: IBUPROFEN 800 MG TAB PO PRN (23:25)
[2025-01-05] MEDS: TRANEXAMIC ACID INJection 1,000 MG in NS 100 ML IV PRN (23:29)
[2025-01-06 00:14] VITALS: BP 143/65
[2025-01-06 01:25] VITALS: BP 142/78; O2SAT 97
[2025-01-06 06:02] VITALS: BP 127/60; O2SAT 96
[2025-01-06] MEDS: PRENATAL VITAMINS CHEWABLE TABLET PO SCH (08:07)
[2025-01-06 18:00] VITALS: BP 156/78; O2SAT 99
[2025-01-06 18:15] VITALS: BP 140/79
[2025-01-07 05:45] VITALS: BP 121/58; O2SAT 97
[2025-01-07] MEDS: MEASLES,MUMPS,RUBELLA VACCINE INJ (MMR-II) SC.IMMUN ONE (09:00)
[2025-01-07] MEDS: FLUZONE VACCINE TRIVALENT PF(2024-25) 0.5ML SYRINGE IM.IMMUN ONE (11:54)
== END 2025-01-07 17:45 | disposition home or self-care (01) | DRG 560 ==
LOC: M LDI 07:47 → M OBS 01-06 01:15
PROVIDERS: ADMIT Advanced Practice Midwife; ATTEND Advanced Practice Midwife
PROC: 10E0XZZ Delivery of Products of Conception, External Approach (ICD-10-PCS; principal; 2025-01-05)
PROC: 3E033VJ Introduction of Other Hormone into Peripheral Vein, Percutaneous Approach (ICD-10-PCS; 2025-01-05)
PROC: 3E0P7GC Introduction of Other Therapeutic Substance into Female Reproductive, Via Natural or Artificial Opening (ICD-10-PCS; 2025-01-05)
DX: O10.02 Pre-existing essential hypertension complicating childbirth (principal); Z37.0 Single live birth; Z3A.37 37 weeks gestation of pregnancy

== ENCOUNTER 2025-05-18 10:25 | Day surgery (SDC) | payer OTHER ==
[~2025-05-18] VITALS: Ht 160 cm; Wt 113.9 kg
[~2025-05-18 10:25] MED LIST changes: -IBUP-1022 PO; +IBUP600T42 PO
[2025-05-18] MEDS ORDERED: LR 1,000 ML IV SCH (10:40)
[2025-05-18] MEDS ORDERED: MIDAZOLAM INJ 2 MG/2 ML VIAL As Ordered ONE (10:45)
[2025-05-18] MEDS ORDERED: dexAMETHasone 4 MG/ML 1 ML VIAL As Ordered ONE (10:47)
[2025-05-18] MEDS ORDERED: LIDOCAINE 2% 100 MG/5 ML SDV (FOR ANES.) As Ordered ONE (10:47)
[2025-05-18] MEDS ORDERED: ONDANSETRON 4MG 2ML VIAL As Ordered ONE (10:48)
[2025-05-18] MEDS ORDERED: ACETAMINOPHEN 1000MG/100ML IV BAG As Ordered ONE (10:48)
[2025-05-18] MEDS ORDERED: ROCURONIUM BROMIDE 50MG/5ML VIAL As Ordered ONE (10:48)
[2025-05-18] MEDS ORDERED: KETOROLAC 30 MG/ML 1 ML VIAL As Ordered ONE (10:48)
[2025-05-18] MEDS ORDERED: SUGAMMADEX SODIUM 200 MG/2 ML VIAL As Ordered ONE (10:48)
[2025-05-18 11:07] LABS: PLATELET COUNT, AUTOMATED 296 10^3/uL (150-450)
[2025-05-18] MEDS ORDERED: ALBUTEROL 6.7 GM INHALER **FOR ANES. CART/OMNICELL ONLY As Ordered ONE (12:13)
[2025-05-18] MEDS ORDERED: ONDANSETRON 4MG 2ML VIAL IV PRN (12:15)
[2025-05-18] MEDS ORDERED: MORPHINE 2 MG/ML 1 ML VIAL IV PRN (12:15)
[2025-05-18 13:46] VITALS: BP 143/82; TEMP 97.4; O2SAT 98
== END 2025-05-18 14:01 | disposition home or self-care (01) ==
LOC: M SDC 10:25
PROVIDERS: ATTEND Obstetrics & Gynecology
DX: Z30.2 Encounter for sterilization (principal); E66.9 Obesity, unspecified
CPT/HCPCS: 36415; 58661; 81025; 85027; 86850; 86900; 86901; 88302; J0131; J0665; J1100; J1885; J2250; J2405; J3010